=== PATIENT | male | born 1995 | race African-American/Black ===

== ENCOUNTER 2016-12-16 17:37 | Emergency (ER) | payer OTHER ==
[2016-12-16 17:43] VITALS: BP 133/74; PULSE 87; RESP 18; TEMP 96.8
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
== END 2016-12-16 18:09 | disposition home or self-care (01) ==
LOC: EC 17:37
DX: S01.81XA Laceration without foreign body of other part of head, initial encounter (principal); F17.200 Nicotine dependence, unspecified, uncomplicated; W22.8XXA Striking against or struck by other objects, initial encounter; Y93.51 Activity, roller skating (inline) and skateboarding
CPT/HCPCS: 12013; 99282

== ENCOUNTER 2017-08-04 09:02 | Emergency (ER) | payer BC, OTHER ==
[2017-08-04 09:19] VITALS: BP 123/66; PULSE 83; RESP 20; TEMP 98
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
[2017-08-04 10:17] LABS: Appearance,Urine Clear (Clear); Bilirubin,Urine Negative (Negative); Blood,Urine Negative (Negative); Color,Urine Yellow; Glucose,Urine (UA) Negative (Negative); Ketones,Urine Negative (Negative); Leukocyte Esterase,Urine Negative (Negative); Nitrite,Urine Negative (Negative); Protein,Urine Trace (Negative); Specific Gravity,Urine 1.025 (1.001-1.035); Urobilinogen,Urine <2.0 mg/dL (<2.0)
--- NOTE | 2017-08-04 10:28 | US ---
EXAMINATION TYPE: US groin RT DATE OF EXAM: 08/04/2017 COMPARISON: NONE CLINICAL HISTORY: Right groin Pain x4 years. Lymph node visualized measuring 0.8 cm. No abnormality visualized. IMPRESSION: No significant abnormality evident to account for patient's symptoms
--- NOTE | 2017-08-04 10:35 | US ---
EXAMINATION TYPE: US scrotum with doppler. Grayscale and color Doppler Duplex imaging performed of t saw scrotum. DATE OF EXAM: 08/04/2017 COMPARISON: NONE CLINICAL HISTORY: Pain/swelling. EXAM MEASUREMENTS: TESTICLES: Right Testicle: 5.2 x 2.9 x 2.7 cm Left Testicle: 5.2 x 3.2 x 2.4 cm EPIDIDYMIS HEAD: Right Epididymis: 1.2 cm Left Epididymis: 1.3 cm Doppler performed to assess for testicular vascularity; good bilateral color flow and waveforms are s een. There is no evidence of testicular torsion. Presence of hydroceles: No Presence of varicoceles: Yes, on the right Small right sided varicocele. Testicular echotexture is homogenous and symmetric. IMPRESSION: No evident testicular torsion. Small right varicocele.
[2017-08-05 15:29] LABS: N. gonorrhoeae,PCR Negative (Neg,Equiv); Neisseria Source Urine
[2017-08-05 15:45] LABS: C. trachomatis,PCR Negative (Neg,Equiv); Chlamydia trachomatis Source Urine
== END 2017-08-04 11:13 | disposition home or self-care (01) ==
LOC: EC 09:02
DX: R10.31 Right lower quadrant pain (principal); N50.82 Scrotal pain; R10.2 Pelvic and perineal pain; Z87.891 Personal history of nicotine dependence
CPT/HCPCS: 76870; 81003; 87086; 87491; 87591; 93975; 99284

== ENCOUNTER 2024-08-09 14:07 | Emergency (ER) | payer BC, OTHER ==
[2024-08-09 14:16] VITALS: RESP 18; TEMP 97.8
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
[2024-08-09 15:41] VITALS: BP 124/78; PULSE 97
[2024-08-09] MEDS: ACETAMINOPHEN TAB 500 MG TAB PO STA (15:41)
== END 2024-08-09 15:46 | disposition home or self-care (01) ==
LOC: EC 14:07
DX: M25.571 Pain in right ankle and joints of right foot (principal); F17.290 Nicotine dependence, other tobacco product, uncomplicated; Y93.55 Activity, bike riding
CPT/HCPCS: 99283